=== PATIENT | male | born 1950 | race Caucasian/White ===

== ENCOUNTER 2023-08-29 20:59 | Outpatient (CLI) | payer MEDICARE, SELFPAY ==
[2023-08-29 20:27] LABS: Chloride 105 mmol/L (98-107); Potassium 4.8 mmoL/L (3.5-5.1); Sodium 138 mmol/L (136-145)
[2023-08-29 20:29] LABS: Alanine Aminotransferase 20 U/L (12-78); Alkaline Phosphatase 75 U/L (38-126); Aspartate Amino Transferase 43 U/L (17-59); Bilirubin,Total 0.6 mg/dl (0.2-1.3); Blood Urea Nitrogen 24 mg/dl (9-20); Estimated Glomerular Filt Rate 59 ml/min (>60); GFR (African American) 72 ML/MIN (>60)
[2023-08-29 20:30] LABS: Albumin Level 4.2 g/dl (3.5-5.0); Albumin/Globulin Ratio 1.5 (1.1-1.8); Anion Gap 9.8 mEq/L (5-15); Calcium 9.4 mg/dl (8.4-10.2); Carbon Dioxide 28 mmol/L (22.0-30.0); Chol/HDL Ratio 6.3 (1-3.5); Cholesterol 227 mg/dl (140-200); Globulin 2.8 g/dL (1.3-3.2); Glucose 101 mg/dl (74-100); HDL Cholesterol 36 mg/dl (40-60); Triglycerides 74 mg/dl (30-150); VLDL Cholesterol 15 mg/dL (0-40)
[2023-08-29 20:41] LABS: Direct LDL Cholesterol 150.86 mg/dL (100-129)
[2023-08-29 21:04] LABS: Prostate Specific Ag Screen 1.5 ng/ml (0.0-4.0)
== END 2023-08-29 23:59 ==
LOC: LAB.DROPOF 20:59
PROVIDERS: PCP Family Medicine; Visit Provider Family Medicine
DX: I10 Essential (primary) hypertension (principal); Z12.5 Encounter for screening for malignant neoplasm of prostate
CPT/HCPCS: 80053; 80061; G0103

== ENCOUNTER 2023-10-31 14:03 | Outpatient (CLI) | payer MEDICARE, SELFPAY ==
--- NOTE | 2023-10-31 14:20 | ECG_ITS ---
APPROVED REPORT Exam: Resting ECG HR:51 bpm ECG Measurements Heart Rate 51 AXES MN 147 P 60 QRSd 83 QRS 17 QT 391 T 49 QTc 368 Conclusion SINUS BRADYCARDIA VOLTAGE CRITERIA FOR LVH [MEETS CRITERIA IN ONE OF: R(aVL), S(V1), R(V5), R(V5/V6)+S(V1)] ABNORMAL ECG UNCONFIRMED REPORT Electronically signed by : Eugene Samano MD 11/02/2023 07:41:45
[2023-10-31 14:33] LABS: Basophils # 0.1 K/mm3 (0-0.2); Basophils % 1.1 % (0.1-2.0); Eosinophils # 0.4 K/mm3 (0.0-0.4); Eosinophils % 4.7 % (0.1-12.0); Hematocrit 41.4 % (42.0-52.0); Hemoglobin 13.2 g/dL (14.1-18.0); Lymphocytes # 1.7 K/mm3 (0.7-4.5); Lymphocytes % 20.9 % (10-50); Mean Corpuscular HGB Conc 31.9 g/dL (31.8-35.4); Mean Corpuscular Volume 97.2 fl (80-94); Mean Platelet Volume 7.6 fl (7.4-10.4); Monocytes # 0.4 K/mm3 (0.1-1.0); Monocytes % 5.5 % (1.7-9.3); Neutrophils # 5.4 K/mm3 (1.8-7.8); Neutrophils % 67.8 % (37.0-80.0); Platelet Count 225 K/mm3 (142-424); Red Blood Count 4.27 M/mm3 (4.60-6.20); Red Cell Distribution Width 12.8 % (11.5-17.5)
[2023-10-31 15:04] LABS: Chloride 106 mmol/L (98-107); Sodium 140 mmol/L (136-145)
[2023-10-31 15:05] LABS: Potassium 4.6 mmoL/L (3.5-5.1)
[2023-10-31 15:07] LABS: Blood Urea Nitrogen 26 mg/dl (9-20); Estimated Glomerular Filt Rate 59 ml/min (>60); GFR (African American) 72 ML/MIN (>60)
[2023-10-31 15:08] LABS: Anion Gap 11.6 mEq/L (5-15); Calcium 9.4 mg/dl (8.4-10.2); Carbon Dioxide 27 mmol/L (22.0-30.0); Glucose 101 mg/dl (74-100)
== END 2023-10-31 23:59 ==
LOC: LAB 14:04
PROVIDERS: PCP Family Medicine; Visit Provider Surgery
DX: D17.9 Benign lipomatous neoplasm, unspecified (principal); R00.1 Bradycardia, unspecified; R94.31 Abnormal electrocardiogram [ECG] [EKG]
CPT/HCPCS: 36415; 80048; 85025; 93005

== ENCOUNTER 2023-11-29 05:57 | Day surgery (SDC) | payer MEDICARE, SELFPAY ==
[2023-11-27 12:32] VITALS: BMI 19.0
[2023-11-29] VITALS (9 sets, daily range): BP systolic 132–157; BP diastolic 75–91; PULSE 54–87; RESP 14–18; TEMP 36.1–36.3; O2SAT 97–100
[2023-11-29] MEDS: LACTATED RINGERS 1000ML 1,000 ML 25 ML IV (06:33)
--- NOTE | 2023-11-29 07:21 | EXP.ANES.CKL ---
[facility] Disclaimer: The information contained in this section may have been updated after the patient was seen, as this information can be updated by other users. Medical History Hyperlipidemia Hypertension Surgical History History of removal of cyst History of colonoscopy Family History Other No significant family history Social History (Updated 11/29/23 @ 06:35 by Kelsea Nassar RN) Smoking Status: Never smoker alcohol intake: never substance use type: denies use current occupational status: retired Travel in the last 8 weeks: None marital status: number of children: 1 [facility] Anesthesia Checklist Patient Identification Patient Identification: Verbal (Name & ) Structural Data Admitted From: Home Planned Operative Procedure/s: excision neoplasm back NPO Status Verified Time NPO: 00:00 Additional verifications Anesthesia Reactions: No Hx Blood Transfusions: No Blood Transfusion Reaction: No Airway Assessment Mallampati Score:: Class II C-Spine Mobility Assessed: Yes TMJ Mobility Assessed: Yes Dentition: Good Dentition Neurological Assessment Level of Consciousness: Awake, Alert and Appropriate Anesthesia Plan Anesthesia Risk discussed: Yes Anesthesia Plan: Verified ASA Class: II Anesthesia Type: General
[2023-11-29] MEDS: CEFAZOLIN SODIUM 1 GM in 0.9 % SODIUM CHLORIDE 50 ML IV (07:22)
[2023-11-29] MEDS: LIDOCAINE 1% 20ML MDV 20 ML (07:22)
--- NOTE | 2023-11-29 07:42 | EXP.OP.NOTE ---
Date of procedure: 11/29/23 Pre-op Diagnosis:: Left lower back sebaceous cyst (4.5 cm) Post-op Diagnosis:: Same Procedure performed:: Excision of 4.5 cm left lower back sebaceous cyst Surgeon:: Nils Zamarripa MD SUPERVISOR ADULT EDUCATION:: Javy Covarrubias Anesthesia: LMA Estimated blood loss (mL): 10 Operative findings:: Lesion excised in toto Operative note:: After informed consent was obtained the patient was taken to the operating room and placed in the supine position. General anesthesia with laryngeal mask airway was achieved. He was transferred to the right lateral decubitus position. His left lower back region was prepped and draped in a sterile fashion. After infiltration with local anesthetic an elliptical incision was made around the lesion. The deep subcutaneous tissue was dissected with a combination of scalpel and electrocautery. The dissection was taken to the fascial margin but did not encroach upon the musculature. The lesion was excised in toto and passed off for pathologic evaluation. Electrocautery was utilized to achieve hemostasis and create tissue flaps to facilitate closure. Skin was then reapproximated with interrupted 4-0 nylon in an mattress fashion. Dressings were applied and the patient was transferred to recovery in stable condition after removal of his laryngeal mask airway. Condition: stable Disposition: PACU Specimens:: Left lower back sebaceous cyst Complications:: No immediate
--- NOTE | 2023-11-29 07:52 | P.PNANES_ITS ---
[facility] Anesthesia Record Part I Anesthesia Record I Intake, IV Amount: 1,200 Hydration: Adequate Estimated blood loss (mL): 0 Urine output (mL): 0 Blood Pressure: 157/91 SaO2: 99 Pulse Rate: 87 Airway Patency: Patent Respiratory Rate: 14 Temperature: 97 F Patient is:: Awake and Stable Stable to PACU at:: 07:50
--- NOTE | 2023-11-29 10:12 | EXP.ANES.II ---
[facility] Anesthesia Record Part II Anesthesia Record Part II Discharge Time: 08:20 Destination: Surgical Day Care (OP Surgery) PACU nurse assessment reviewed?: Yes Patient Condition:: Good Anesthesia Complications:: None Swallowing reflex intact?: Yes Airway Patency: Patent Cyanosis?: No Blood Pressure: 139/82 SaO2: 98 Respiratory Rate: 16 Pulse Rate: 75 Temperature: 97.3 F Mental Status: Alert & Oriented Pain level:: 0 Nausea and/or vomitting:: None Intake, IV Amount: 0 Hydration: Adequate
== END 2023-11-29 08:35 | disposition home or self-care (01) ==
PROVIDERS: PCP Family Medicine; Visit Provider Surgery
PROC: (CPT 11406; principal; 2023-11-29 07:30)
DX: L72.11 Pilar cyst (principal); R52 Pain, unspecified
CPT/HCPCS: 11406; 12032; 96374; J2405

== ENCOUNTER 2024-08-20 10:35 | Outpatient (CLI) | payer MEDICARE, SELFPAY ==
[2024-08-20 17:54] LABS: Basophils # 0.1 K/mm3 (0-0.2); Basophils % 1.1 % (0.1-2.0); Eosinophils # 0.1 K/mm3 (0.0-0.4); Eosinophils % 1.5 % (0.1-12.0); Hematocrit 39.3 % (42.0-52.0); Hemoglobin 12.9 g/dL (14.1-18.0); Lymphocytes # 1.7 K/mm3 (0.7-4.5); Lymphocytes % 25.5 % (10-50); Mean Corpuscular HGB Conc 32.8 g/dL (31.8-35.4); Mean Corpuscular Hemoglobin 29.7 pg (27.0-31.2); Mean Corpuscular Volume 90.6 fl (80-94); Mean Platelet Volume 10.1 fl (7.4-10.4); Monocytes # 0.7 K/mm3 (0.1-1.0); Neutrophils # 4.1 K/mm3 (1.8-7.8); Neutrophils % 61.7 % (37.0-80.0); Platelet Count 295 K/mm3 (142-424); Red Blood Count 4.34 M/mm3 (4.60-6.20); Red Cell Distribution Width 12.1 % (11.5-17.5); White Blood Count 6.6 K/mm3 (4.8-10.8)
[2024-08-20 18:46] LABS: Alanine Aminotransferase 18 U/L (12-78); Albumin Level 4.4 g/dl (3.5-5.0); Albumin/Globulin Ratio 1.7 (1.1-1.8); Alkaline Phosphatase 80 U/L (38-126); Aspartate Amino Transferase 25 U/L (17-59); Bilirubin,Total 0.4 mg/dl (0.2-1.3); Blood Urea Nitrogen 31 mg/dl (9-20); Carbon Dioxide 23 mmol/L (22.0-30.0); Chloride 104 mmol/L (98-107); Chol/HDL Ratio 5.6 (1-3.5); Cholesterol 241 mg/dl (140-200); Estimated Glomerular Filt Rate 59 ml/min (>60); GFR (African American) 72 ML/MIN (>60); Globulin 2.6 g/dL (1.3-3.2); Glucose 103 mg/dl (74-100); HDL Cholesterol 43 mg/dl (40-60); Sodium 136 mmol/L (136-145); Triglycerides 76 mg/dl (30-150); VLDL Cholesterol 15 mg/dL (0-40)
[2024-08-20 18:54] LABS: Anion Gap 13.8 mEq/L (5-15); Potassium 4.8 mmoL/L (3.5-5.1)
[2024-08-20 18:58] LABS: Direct LDL Cholesterol 175.43 mg/dL (100-129)
== END 2024-08-20 23:59 | disposition home or self-care (01) ==
LOC: LAB.DROPOF 08-21 11:28
PROVIDERS: PCP Family Medicine; Visit Provider Family Medicine
DX: I10 Essential (primary) hypertension (principal)
CPT/HCPCS: 80053; 80061; 85025

== ENCOUNTER 2024-09-09 12:56 | Outpatient (CLI) | payer SELFPAY ==
--- NOTE | 2024-09-09 12:57 | CT_ITS ---
APPROVED REPORT Food Checkers And Cashiers Supervisor: CLINICAL INDICATION Risk stratification TECHNIQUE Image Acquisition: A 128 slice MDCT scanner ([employer] View) was used for data acquisition. A noncontrast coronary calcium scan was performed. A CT attenuation threshold of 130 Hounsfield units (HU) was used for the detection of calcium in contiguous voxels of 1 sq mm in area to be counted as individual lesions. A tube voltage of 120 KVp was used. The patient received no medications prior to the coronary calcium CT. Image Reconstruction Transaxial images were reconstructed at 0.67 mm slide thickness. Data was reviewed interactively on an advanced workstation capable of 2 and 3-dimensional displays in all conventional reconstruction formats, including multiplanar reformations, maximum intensity projections, curved multiplanar reformations, and volume rendered reconstructions. When applicable, selected routine images describing the relevant coronary anatomy and pathology were saved and sent to PACS. Complications None Technical Quality Overall image quality was good. Total DLP (Dose-Length Product) is 179.9 mGy-cm. The reported value represents the total of one or more individual components during the CT acquisition of this date and at this time, and as such, the same value may appear in more than one CT report depending on the interpreting/reporting physicians. COMPARISON None FINDINGS CT Coronary Calcium Scoring LMA (Left Main Artery) = 0 LAD (Left Anterior Descending) = 289 LCX (Left Coronary Circumflex) = 30 RCA (Right Coronary Artery) = 309 Total Calcium Score = 628 using the AJ-130 method. There is also calcification in the aortic valve and the ascending and descending thoracic aorta. IMPRESSION -Coronary artery calcification is present. -Total Calcium Score (Agatston Score) = 628 using the AJ-130 method. -The observed calcium score of 628 is at 71st percentile for subjects of the same age, sex, and race/ethnicity. The interpretation of the calcium heart score is based on the following continuum*: 0 = no calcified plaque detected (risk of coronary artery disease is very low ??? less than 5%) 1-10 = calcium detected in extremely minimal levels (risk of coronary diseases is still low ??? less than 10%) 11-100 = mild levels of plaque detected with certainty (mild or minimal narrowing of heart arteries is likely) 101-400 = definite,at least moderate levels of plaque detected (relatively high risk of a heart attack within 3-5 years) >401-999 = extensive levels of plaque detected (high risk of heart attack, high levels of vascular disease are present, high likelihood of at least one significant coronary narrowing) *The calcium heart score quantifies the burden of coronary calcification/plaque in the coronary arteries. The calcium heart score does not evaluate the presence or the burden of non-calcified (i.e. soft) plaque. The coronary and cardiac findings of this Coronary Calcium CT were reviewed, reported, and signed by Brandon Mehta MD (Facility Rehab Director). Conclusion Electronically signed by : Kate Mehta MD 09/09/2024 15:22:50
== END 2024-09-09 23:59 | disposition home or self-care (01) ==
PROVIDERS: PCP Family Medicine; Visit Provider Family Medicine
DX: E78.5 Hyperlipidemia, unspecified (principal)
CPT/HCPCS: 75571

== ENCOUNTER 2025-02-26 11:44 | Outpatient (CLI) | payer MEDICARE, SELFPAY ==
[2025-02-26 16:50] LABS: Cholesterol 209 mg/dl (140-200); HDL Cholesterol 51 mg/dl (40-60); Triglycerides 86 mg/dl (30-150)
[2025-02-26 16:52] LABS: Hepatitis C Ab Qual. W/ RFX NEGATIVE (Negative)
[2025-02-27 08:14] LABS: Hepatitis B Surface Antigen Negative (Negative)
--- OUTSIDE RECORDS SUMMARY | 2025-03-02 11:47 | XMS_ITS | Data Portability ---
Author Organization [place] - [facility] Address [address] [place] [address] Assessment Encounter Date Assessment Date Assessment LastModified by Organization Details LastModified Time 02/27/2023 02/27/2023 Risk factors are age and hypertension. Coronary calcification. No diabetes mellitus, no tobacco use and no hyperlipidemia. Right scapular pain. Muscular versus from the tick bite. 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 Post treatment now and feels better. In the process he had a CTA of the chest which showed coronary calcification. Given the risk factors, will go ahead and proceed with an exercise treadmill. Follow-up in 3-4 weeks. Meds and chart reviewed in full today Exercise treadmill Monitor blood pressure and heart rate Follow-up in Cardiology Clinic in 3-4 weeks Plan: -Continue other current medications. -Continue aggressive risk factor modification. -Recommend LDL less than 100. -Encouraged regular exercise and activity. Patient Education was printed, I have reviewed the Past Medical, Family, and Social Histories along with ROS and all orders in today's record, and have noted any changes. Medications, charts and records reviewed in full today. EKG today reveals normal sinus rhythm with left ventricular hypertrophy and early repolarization. No other changes. CHEST CTA: 01/29/2023 NO ACUTE INTRATHORACIC PROCESS. MILD CORONARY CALCIFICATION. Kermit, Corinne Sue CMA, am scribing for, and in the presence of, Jonathan Bazan MD. Jonathan Carmen M.D. performed the services as described in this documentation, as scribed by Corinne Sue CMA in my presence, and it is both accurate and complete. This note was dictated using [employer] software. If something is unclear, or does not make sense, please do not hesitate to contact our office at [phone] for clarification. ran Not available 02/27/2023 09:43:07 04/11/2023 04/11/2023 Doing well. No chest pain or pressure. No shortness of breath. Stress test is normal. Intermediate risk Rader treadmill score due to moderate reduction in functional capacity, but the EKG is normal. No evidence for ischemia. He is asymptomatic. He will follow-up in Cardiology Clinic as needed. No further cardiac testing needed at this time. Blood pressure and heart rate are under good control Follow-up in Cardiology Clinic as needed Monitor blood pressure and heart rate Blood work as per primary care Plan: -Continue other current medications. -Continue aggressive risk factor modification. -Recommend LDL less than 100. -Encouraged regular exercise and activity. Patient Education was printed, I have reviewed the Past Medical, Family, and Social Histories along with ROS and all orders in today's record, and have noted any changes. Medications, charts and records reviewed in full today. EKG 02/27/23 normal sinus rhythm with left ventricular hypertrophy and early repolarization. No other changes. CHEST CTA: 01/29/2023 NO ACUTE INTRATHORACIC PROCESS. MILD CORONARY CALCIFICATION. LAST ISCHEMIC EVAL: 03/08/2023 GXT INTERMEDIATE RADER TREADMILL SCORE. DUE TO MODERATE REDUCTION IN FUNCTIONAL CAPACITY. NORMAL EXERCISE EKG. Corinne Carmen CMA, am scribing for, and in the presence of, Jonathan Bazan MD. Jonathan Carmen M.D. performed the services as described in this documentation, as scribed by Corinne Sue CMA in my presence, and it is both accurate and complete. This note was dictated using [employer] software. If something is unclear, or does not make sense, please do not hesitate to contact our office at [phone] for clarification. [email or web address] Not available 04/11/2023 09:10:52 Plan of Treatment Reminders Order Date Submit Date Provider Last Modified By Organization Details Last Modified Time Details Appointments None recorded. Lab None recorded. Referral None recorded. Procedures None recorded. Surgeries None recorded. Imaging electrocard iogram 2022 023 [email or web address] 1 [facility], [address] [place] [address] [address], [place], [address], 09:41:18 exercise stress test 2022 023 [email or web address] Jackson (Centralized Scheduling)[address] , [place], [address], 07:45:32 Medication Orders None recorded. Patient TargetsNo targets recorded. Patient InstructionsNo instructions recorded. Reason for Referral None Reported. Results Created Date Observation Date Name Description Value Unit Range Abnormal Flag Note LastModifiedBy Organization Detail LastModifiedTime 02/28/20 elect rocar diogr am No observ ation record ed. GUILLE [address], [place], [address], 02/27/2023 09:16:21 02/28/20 23 02/27/2023 elect rocar diogr am No observ ation record ed. [email or web address] Not Available 2022 09:21:24 03/09/20 23 03/09/2023 - gxt stres s test [facility] Med[facility] Ce Name: DERIC SHAFER [address] [place] [address] Phys: Hortensia LIZ, [place] [address] : 1950 Age: 72 Sex: M Acct: [id number] Loc: [facility] PHONE #: [phone] Exam Date: 2022 Status : DEP CLI FAX #: Rad# [id number] Unit# [id number] Admit Date: 2022 EXAMS: CPT CODE: [id number] GXT STRESS TEST [id number] Reason for study: Shortn ess of breath Patien t exerci sed accord ing to a Hamilton protoc ol for 3 minute s achiev ing a work level of max METs 4.6. The restin g heart rate was 60 bpm and kristin to a maximu m heart rate of 130 bpm which repres ents 88% of the jose l age-pr edicte d heart rate. Restin g blood pressu re 140/88 mmHg and kristin to a maximu m blood pressu re of 160/88 mmHg. Restin g EKG shows normal sinus rhythm with nonspe cific change s. With exerci se patien t had less than [address] segmen t depres martha. No arrhyt hmia. Heart rate and blood pressu re respon se approp riate. Modera te reduct ion in functi onal capaci ty. Rader treadm ill score +3 which is interm ediate risk. Overal l this is a normal exerci se EKG. 1. Normal exerci se EKG. 2. Modera te reduct ion in functi onal capaci ty. 3. Interm ediate risk Rader treadm ill score second salomón to functi onal capaci ty. Electr onical ly Signed by JONATHAN BAZAN MD on 2022 at 1230 Report ed and signed by: JONATHAN BAZAN MD CC: Jonathan Bazan MD; Mark Velázquez MD Dictat ed Date/T ruchi: 2022 (1230) Techno logist : CHASE PAYAN Transc ribed Date/T ruchi: 2022 (1230) Transc riptio nist: DR.LOH CASIMIRO gomezic Signat ure Date/T ruchi: 2022 (1230) Printe d Date/T ruchi: 2022 (1252) BATCH NO: N/A PAGE 1 Signed Report CC'ed Logic: Orderi ng Provid er: HORTENSIA CASTILLO Attend ing Provid er: HORTENSIA CASTILLO Referr ing Provid er: HORTENSIA CASTILLO Consul ting Provid er: EUGENIO [email or web address] [address] , [place], [address], 03/09/2023 13:08:08 Result Notes None recorded. Problems Name Problem SNOMED Code Status Onset Date Resolution Date Notes Provider Name and Address Organization Details Recorded Time Calcificati on of coronary artery 930700490 Active 2022 Jonathan Bazan MD [address] [place] [address],[address], [place], [address], [facility] & [place] 3 09:38:49 Electrocard iogram abnormal 747056413 Active 2022 Jonathan Bazan MD [address] [place] [address],[address], [place], [address], [facility] & [place] 3 09:38:53 Pain of right shoulder joint 8048264395420 9100 Active 2022 Jonathan Bazan MD [address] [place] [address],[address], [place], [address], [facility] - [facility] & [place] 3 09:39:12 Essential hypertensio n 65508742 Active 2022 Jonathan Bazna MD [address] [place] [address],[facility], [place], [address], [facility] - [facility] & [place] 3 09:09:58 Problem Notes None recorded. Procedures Surgical History Date Name Laterality Status Provider Name and Address Organization Details Recorded Time 5 Colonoscopy completed Marina Rahman [place] - [facility] - [place] & [place] 04/11/2023 09:01:51 Colonoscopy completed Esme Pan [place] - [facility] [place] [facility] [place] 02/27/2023 09:15:39 Imaging Results None recorded. Procedure Notes None recorded. Medical Equipment None Reported. Allergies No known drug allergies Medications Name Sig Start Date Stop Date Status Note LastModified by Organization Details LastModified Time doxycycline hyclate 100 mg capsule 02/27 completed Not Available Not Available Not Available aspirin 81 mg tablet,delay ed release Take 1 tablet every day by oral route. active Not Available Not Available No t Available Celebrex 200 mg capsule Take 1 capsule every day by oral route. 02/27 completed Not Available Not Available Not Available methocarbamo l 750 mg tablet 02/27 completed Not Available Not Available Not Available hydrocodone 7.5 mg-acetamino phen 325 mg tablet 02/27 completed Not Available Not Available Not Available lisinopril 10 mg tablet TAKE 1 TABLET BY MOUTH DAILY active Not Available Not Available No t Available methylpredni solone 4 mg tablets in a dose pack 02/27 completed Not Available Not Available Not Available Vitals Date Recorded Body weight Oxygen saturation Oxygen saturation in Arterial blood by Pulse oximetry Heart rate Body mass index (BMI) Body height Systolic And Diastolic Provider Name and Address Organization Details Last Updated DateTime 3 60453.3 1 g 98 % 98 % 88 /min 17.8 kg/m2 172.72 cm 140/90 mm[Hg] Esme Pan [facility] & [place] 3 09:13:22 Date Recorded Body height Body mass index (BMI) Body weight Oxygen saturation Oxygen saturation in Arterial blood by Pulse oximetry Heart rate Systolic And Diastolic Provider Name and Address Organization Details Last Updated DateTime 3 172.72 cm 18.1 kg/m2 04338.4 9 g 97 % 97 % 58 /min 138/78 mm[Hg] Marina belle [facility] & [place] 3 09:03:55 Social History Question Answer Notes LastModified by Organizat ion Details LastModified Time Tobacco Smoking Status Never Smoker Esme Pan [facility] & [place] 02/27/2023 09:15:29 What Was The Date Of Your Most Recent Tobacco Screening? 02/27/2023 [email or web address] Information not available 04/11/2023 Are You Passively Exposed To Smoke? No [email or web address] Information not available 04/11/2023 Sex: Male Functional Status Question Answer Note LastModified by Organizat ion Details LastModified Time Do you use any illicit or recreational drugs? No [email or web address] Information not available 02/27/2023 What is your level of alcohol consumption? None [email or web address] Information not available 02/27/2023 What is your exercise level? Moderate [email or web address] Information not available 04/11/2023 Mental Status None recorded. Family History Relationship Description Onset Age of this Age Resolved Age Notes LastModified by Organization Details LastModified Time Mother Heart failure [email or web address] Not available 2022 09:15:16 Medical History Condition Response High Cholesterol Y Chest Pain Y Hyperlipidemia Y Hypertension Y Past Encounters Encounter ID Performer Location Encounter Start Date Encounter Closed Date Diagnosis/Indication Diagnosis SNOMED-CT Code Diagnosis ICD10 Code Diagnosis Note [id number] Jonathan Bazan MD [address] [place] [address] 02/27/2023 08:25:15 02/27/2023 09:41:18 Essential hypertension 22146549 I10 Calcificat ion of coronary artery 066364983 I25.84 Electrocar diogram abnormal 044119392 R94.31 Pain of ri ght shoulder joint 3364014589 3090081 M25.511 [id number] MD VERNON Jaquez [address] [place] [address] 04/11/2023 08:50:58 04/11/2023 09:08:57 Calcification of coronary artery 893904664 I25.84 Electrocar diogram abnormal 749007149 R94.31 Pain of ri ght shoulder joint 6799997205 6244470 M25.511 Essential hypertension 73938665 I10 Health Concerns Section Related Observation LastModified by Organization Detai ls LastModified Time None Recorded Concern Status LastModified by Organization Details LastModified Time None Recorded Advance Directives Directive None Recorded Payers Insurance Date Sequence Insurance Name Policy Number Policy Muñoz Covered Member ID Muñoz Member ID Guarantor Name 04/08/2023 1 [place]MEDICARE REPLACEMENT REGIONAL PPO) [id number] Deric Dwyer [id number] Deric Dwyer 03/01/2023 1 [place]/AD VANTAGE - PPO) [id number] Deric Dwyer [id number] Deric Dwyer
--- OUTSIDE RECORDS SUMMARY | 2025-03-02 11:47 | XMS_ITS | Encounter Summary ---
Author Organization [place] [address] Care Team Providers Care Food Beverage Supervisor Name Role Phone Lisa Stout MD Primary Care Provider Encounter Details Date Type Department Care Team (Late st Contact Info) Description 02/26/2015 Orders Only SEP Gastro [facility] [address] [facility] [address] [place] [address] Eduardo Patiño MD [address] [place] [address] Social History Tobacco Use Types Packs/Day Years Used Date Smoking Tobacco: Never Smokeless Tobacco: Never Alcohol Use Standard Drinks/Week Comments Yes 0 (1 standard drink = 0.6 oz pur e alcohol) occ Sexually Active Control Partners Comments Yes Female Sex and Gender Information Value Date Recorded Sex Assigned at Not on file Legal Sex Male 11:05 AM EDT Gender Identity Not on file Sexual Orientation Not on file Occupation Industry Job Start Date Job End Date Sales Not on file Not on file Not on file documented as of this encounter Plan of Treatment Not on file documented as of this encounter Goals Goal Patient Goal Type Associated Problems Recent Progress Patient-Stated? Author Blood Pressure < 140/90 Blood Pressure 106/62(2022 9:50 AM EDT) No Lisa Stout MD LDL CALC < 100 Result Component 160( 10:35 AM EDT) No Lisa Stout MD HDL > 40 Result Component 45(10/24/2022 10:35 AM EDT) No Lisa Stout MD documented as of this encounter Procedures Procedure Name Priority Date/Time Associated Diagnosis Comments GMED COLONOSCOPY Routine 02/26/2015 8:00 AM EDT documented in this encounter Results * [facility]ED COLONOSCOPY (02/26/2015 8:00 AM EDT) 02/26/2015 8:[address] [facility] - 02/26/2015 8:29 AM EDT Moderate diverticulosis of the sigmoid colon. Plan: Screening Colonoscopy in 10 years. This section is an excerpt of the full report. us Eduardo Patiño MD GI PROCEDURE ORDERABLES Fin al Result Performing Organization Address City/State/[facility] Co de Phone Number [facility] [address] [place] [address] documented in this encounter Visit Diagnoses Not on filedocumented in this encounter Care Teams Food Beverage Supervisor Relationship Specialty Start Date End Date Lisa Stout MD [address] [facility] [address] [place] [phone] PCP - General 07/12/09 10/22/23 documented as of this encounter
--- OUTSIDE RECORDS SUMMARY | 2025-03-02 11:47 | XMS_ITS | Clinical Summary ---
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 Active DOCOSAHEXANOIC ACID/EPA (FISH OIL ORAL) Take 1,000 mg by mouth 2 times daily. Active ascorbic acid, vitamin C, (VITAMIN C) 500 mg Oral Tablet Take 1,000 mg by mouth daily. Active MULTIVITS-MINERAL S/FA/LYCOPENE (ONE-A-DAY MEN'S MULTIVITAMIN ORAL) Take by mouth every 24 hours. Active lisinopriL (PRINIVIL;ZESTRIL ) 10 mg Oral Tablet TAKE ONE TABLET BY MOUTH DAILY 90 Tablet 1 10/02/2022 Active vit B/min/saw palmetto/pygeum (URINOZINC PROSTATE COMPLX [facility] ORAL) Take by mouth. Active Active Problems Patient Care Coordination No te Formatting of this note migh t be different from the original. Care gap audit completed by Jeanna Peñaloza RN on 11/15/2023. Problem Noted Date Diagnosed Date IFG (impaired fasting glucose) 03/18/2018 Overview (03/18/2018): No family h/o DM ?statin BPH without urinary obstruction 03/13/2017 HTN (hypertension) HLD (hyperlipidemia) Immunizations Immunization Administration Dates Next Due Pneumococcal Conjugate Vaccine 13 Valent 016 Pneumococcal Polysaccharide 23 Valent 09/17/2017 Tdap 10/04/2020,07/03/2011 Zoster Recombinant 05/20/2020,05/05/2020, 020 Surgical History Surgery Date Site/Laterality Comments COLONOSCOPY 12/08/2004, 02/26/15 recheck 10 yrs CARDIOVASCULAR STRESS TEST 2004 - 12/03/2004 normal Medical History Medical History Date Comments HTN (hypertension) HLD (hyperlipidemia) Family History Medical History Relation Name Comments Cancer Brother bladder cancer Retinal Detachment Brother Other Father PUD Heart Disease Mother chf Heart Disease Sister 1 Seizures Sister 3 Relation Name Status Comments Brother Alive Father (Age 80) Mother (Age 80) Sister 1 (Age 81) Sister 2 [place] Alive Sister 3 (Age 55) Social History Tobacco Use Types Packs/Day Years Used Date Smoking Tobacco: Never Smokeless Tobacco: Never Tobacco Cessation:Counseling Given: Not Answered Alcohol Use Standard Drinks/Week Comments Yes 0 (1 standard drink = 0.6 oz pur e alcohol) occ PHQ-2 Answer Date Recorded PHQ-2 Total Score 0 10/24/2022 Sexually Active Control Partners Comments Yes Female Sex and Gender Information Value Date Recorded Sex Assigned at Not on file Legal Sex Male 11:05 AM EDT Gender Identity Not on file Sexual Orientation Not on file Occupation Industry Job Start Date Job End Date Sales Not on file Not on file Not on file Obstetrics History Last Filed Vital Signs Vital Sign Reading Time Taken Comments Blood Pressure 106/62 10/24/2022 9:50 AM EDT Pulse 55 10/24/2022 9:50 AM EDT Temperature 36.5 C (97.7 F) 10/24/2022 9:50 AM EDT Respiratory Rate 21 10/24/2022 9:50 AM EDT Oxygen Saturation 99% 10/24/2022 9:50 AM EDT Inhaled Oxygen Concentration - - Weight 54 kg (119 lb) 10/24/2022 9:50 AM EDT Height 172.7 cm (5' 8 ) 10/24/2022 9:50 AM EDT Body Mass Index 18.09 10/24/2022 9:50 AM EDT Plan of Treatment Health Maintenance Due Date Last Done Comments Cologuard 1994 FIT 1994 Sigmoidoscopy 1994 Virtual Colonography 1994 Wellness Exam Medicare 10/25/2023 3, 10/06/2021, 10/04/2020 COVID-19 Vaccine ( - 2023- season) 2024 RSV or 60+ (1 - 1-dose 75+ series) 2024 Colon Cancer Screening 02/26/2025 Colonoscopy 02/26/2025 02/26/2015, 02/04, 06/30/2005, Additional history exists Influenza Vaccine (#1) 2025 8 (Declined), 09/21/2016 (Declined), 07/20/2015 (Declined), Additional history exists DTaP/TDaP/Td (3 - Td or Tdap) 10/04/2030 10/04/2020, 07/03/2011 Hepatitis C Screening Completed 09/21/2016 Pneumococcal Vaccine 50+ Completed 09/17/2017, 03/07 Zoster Completed 05/20/2020, 04/08, 03/18/2020 Hepatitis B Vaccine Aged Out No longe r eligible based on patient's age to complete this topic Meningococcal B Vaccine Aged Out No l onger eligible based on patient's age to complete this topic Goals Goal Patient Goal Type Associated Problems Recent Progress Patient-Stated? Author Blood Pressure < 140/90 Blood Pressure 106/62(2022 9:50 AM EDT) No Lisa Stout MD Maintain a healthy diet, exercise regularly and maintain an ideal body weight General No Nevaeh Faulkner RMA LDL CALC < 100 Result Component 160( 10:35 AM EDT) No Lisa Stout MD HDL > 40 Result Component 45(10/24/2022 10:35 AM EDT) No Lisa Stout MD Procedures Procedure Name Priority Date/Time Associated Diagnosis Comments HCV ANTIBODY SCREEN W/ REFLEX Routine 09/21/2016 9:08 AM EST Need for hepatitis C screening test [facility] COLONOSCOPY Routine 02/26/2015 8:00 AM EDT from Last 3 Months or Most Recently Relevant to Health Maintenance Results * HEPATITIS C ANTIBODY - SCREENING (09/21/2016 9:08 AM EST) Hep C Ab Negative Negative [facility] Blood specimen (specimen) UPPER LIMB STRUCTURE / Unknown 09/21/2016 9:08 AM EST 09/21/2016 1:14 PM EST us Lisa Stout MD HEMATOLOGY ORDERABLES Final Resu lt Performing Organization Address City/[facility] Co de Phone Number [facility] [address] [place] [address] * [facility] COLONOSCOPY (02/26/2015 8:00 AM EDT) 02/26/2015 8:00 AM EDT Impressions [facility] - 02/26/2015 8:29 AM EDT Moderate diverticulosis of the sigmoid colon. Plan: Screening Colonoscopy in 10 years. This section is an excerpt of the full report. us Eduardo Patiño MD GI PROCEDURE ORDERABLES Fin al Result Performing Organization Address [facility] de Phone Number [facility] [address] [place] [address] from Last 3 Months or Most Recently Relevant to Health Maintenance Insurance BHARATH MR BHARATH MR
== END 2025-02-26 23:59 | disposition home or self-care (01) ==
LOC: LAB.DROPOF 03-02 11:45
PROVIDERS: PCP Family Medicine; Visit Provider Family Medicine
DX: I10 Essential (primary) hypertension (principal); Z12.5 Encounter for screening for malignant neoplasm of prostate; Z11.59 Encounter for screening for other viral diseases
CPT/HCPCS: 80061; 80074; 87340; 87389; G0103